=== PATIENT | male | born 1970 | race American Indian/Alaskan Native ===

== ENCOUNTER 2017-09-13 10:16 | Emergency (ER) | payer OTHER ==
[2017-09-13 10:23] VITALS: BMI 29.5
--- NOTE | 2017-09-13 10:48 | ED PDOC ---
Arrival/HPI - General Time Seen by Provider: 09/13/17 10:43 Historian: Patient - History of Present Illness Narrative History of Present Illness (Text): 09/13/17 10:45 Patient is a 46 year old male whose past medical history includes hypertension and left knee surgery, who presents to Emergency department complaining of right shoulder pain and hand numbness secondary to shoulder injury. Patient reports that prior to arrival he was at work and using a hose when he heard a pop from his right shoulder. He subsequently started experiencing shoulder pain , which he rates a 8/10 in severity, and tingling in his right 3rd, 4th, and 5th fingers. patient denies fevers, chills, headache, dizziness, chest pain, shortness of breath, dyspnea on exertion, cough, abdominal pain, nausea, vomiting, diarrhea, back pain, neck pain, or any other complaint. Time/Duration: Prior to Arrival Symptom Onset: Sudden Symptom Course: Unchanged Severity Level: 8 Context: Work Past Medical History - Provider Review Nursing Documentation Reviewed: Yes Family/Social History - Physician Review Nursing Documentation Reviewed: Yes Family/Social History: No Known Family HX Allergies/Home Meds Allergies/Adverse Reactions: Allergies No Known Allergies Allergy (Verified 09/13/17 10:23) Review of Systems - Physician Review All systems were reviewed & negative as marked: Yes - Review of Systems Constitutional: absent: Fevers, Night Sweats Respiratory: absent: SOB, Cough Cardiovascular: absent: Chest Pain, CANNON Gastrointestinal: absent: Abdominal Pain, Diarrhea, Nausea, Vomiting Musculoskeletal: Arthralgias (right shoulder pain). absent: Back Pain, Neck Pain Neurological: Other (right hand finger numbness/tingling). absent: Headache, Dizziness Physical Exam Vital Signs Temp Pulse Resp BP Pulse Ox 09/13/17 12:39 98.1 F 75 18 151/106 H 97 09/13/17 11:42 71 18 142/81 97 09/13/17 10:50 98.1 F 79 17 144/99 H 97 - Systems Exam Head: Present: Atraumatic, Normocephalic Pupils: Present: PERRL Extroacular Muscles: Present: EOMI Conjunctiva: Present: Normal Mouth: Present: Moist Mucous Membranes Neck: Present: Normal Range of Motion Respiratory/Chest: Present: Clear to Auscultation, Good Air Exchange. No: Respiratory Distress, Accessory Muscle Use Cardiovascular: Present: Regular Rate and Rhythm, Normal S1, S2. No: Murmurs Abdomen: No: Tenderness, Distention, Peritoneal Signs Back: Present: Normal Inspection Upper Extremity: Present: Normal Inspection, Neurovascularly Intact (Right hand neurovascularly intact), Other (No obvious dislocation or subluxation). No: Cyanosis, Edema, Normal ROM (Limited ROM of right shoulder due to pain) Lower Extremity: Present: Normal Inspection. No: Edema Neurological: Present: GCS=15, CN II-XII Intact, Speech Normal Skin: Present: Warm, Dry, Normal Color. No: Rashes Psychiatric: Present: Alert, Oriented x 3, Normal Insight, Normal Concentration Medical Decision Making ED Course and Treatment: 09/13/17 10:51 Impression: Patient is a 46 year old male who is complaining of right shoulder pain and finger tingling secondary to right shoulder injury. Differential Diagnosis included but are not limited to: Shoulder strain vs. Subluxation vs. Cervical radiculopathy vs. Dislocation. Plan: --Cervical spine CT without contrast --Right shoulder X-ray --Motrin -- Reassess and disposition Progress Notes: 09/13/17 11:51 Shoulder X-ray: Creator : Rubens Johnson MD IMPRESSION: Normal radiographs of the right shoulder. 09/13/17 11:[address]: Creator : Rubens Johnson MD IMPRESSION: No acute findings 09/13/17 12:00 Reevaluation: On reevaluation the patient feels better and is in no acute distress. I have discussed the results and plan with the patient, who expresses understanding. Patient given the opportunity to ask question, all questions were answered and there is agreement with the plan to discharge the patient home with a note excusing him from work for 7 days. Patient is stable for discharge. Patient was instructed to follow up with (Orthopedics) in 1-2 days or return if symptoms persist/worsen or new concerning symptoms arise. - RAD Interpretation Radiology Orders: 09/13/17 10:45 CERVICAL SPINE W/O CONTRAST [CT] Stat SHOULDER RIGHT [RAD] Stat Sonoscope Operator: Radiologist - Medication Orders Current Medication Orders: Discontinued Medications Ibuprofen (Motrin Tab) 800 mg PO STAT STA Stop: 09/13/17 10:46 Last Admin: 09/13/17 11:00 Dose: 800 mg - Scribe Statement The provider has reviewed the documentation as recorded by the Scribe Vinayak Billdeshawn Provider Scribe Attestation: All medical record entries made by the Scribe were at my direction and personally dictated by me. I have reviewed the chart and agree that the record accurately reflects my personal performance of the history, physical exam, medical decision making, and the department course for this patient. I have also personally directed, reviewed, and agree with the discharge instructions and disposition. Disposition/Present on Arrival - Present on Arrival Any Indicators Present on Arrival: No History of DVT/PE: No Urinary Catheter: No - Disposition Have Diagnosis and Disposition been Completed?: Yes Diagnosis: Shoulder strain Disposition: HOME/ ROUTINE Disposition Time: 12:03 Patient Plan: Discharge Condition: GOOD Discharge Instructions (ExitCare): Muscle Strain (DC) Additional Instructions: Mr Lucero- I believe this is just a shoulder sprain/strain and you may require some rehab/ physical therapy. Follow up with orthopedics- no lifting more then 10 pounds with that right arm. Best- Dr. Dimitry Herrera Prescriptions: Ibuprofen [Motrin Tab] 800 mg PO TID #90 tab Referrals: Yvon Shankar MD [Staff Provider] - Follow up with primary Forms: WORK NOTE, SCHOOL NOTE
[2017-09-13 10:53] VITALS: TEMP 98.1; O2SAT 97
--- NOTE | 2017-09-13 11:43 | RAD ---
PROCEDURE: Radiographs of the Right Shoulder HISTORY: Shoulder Pain COMPARISON: No prior. FINDINGS: BONES: Normal. No fracture. JOINTS: Normal. Glenohumeral and acromioclavicular joints preserved. No osteoarthritis. SOFT TISSUES: Normal. OTHER FINDINGS: None. IMPRESSION: Normal radiographs of the right shoulder.
[2017-09-13 11:45] VITALS: RESP 18
--- NOTE | 2017-09-13 11:51 | CT ---
PROCEDURE: CT Cervical Spine without contrast HISTORY: Radiculopathy COMPARISON: None available. TECHNIQUE: Axial computed tomography images were obtained of the cervical spine without the use of intravenous contrast. Coronal and sagittal reformatted images were created and reviewed. Radiation dose: Total exam DLP = 741 mGy-cm. This CT exam was performed using one or more of the following dose reduction techniques: Automated exposure control, adjustment of the mA and/or kV according to patient size, and/or use of iterative reconstruction technique. FINDINGS: VERTEBRAE: No fracture. Normal alignment. No destructive bony lesion. DISCS/SPINAL CANAL/NEURAL FORAMINA: No significant central canal or neural foraminal stenosis. Mild disc degeneration and mild foraminal stenosis at C5-6 PARASPINAL SOFT TISSUES: Unremarkable. OTHER FINDINGS: None. IMPRESSION: No acute findings
[2017-09-13 13:22] VITALS: BP 151/106; PULSE 75
== END 2017-09-13 12:39 | disposition home or self-care (01) ==
LOC: ED 10:16
DX: S46.911A Strain of unspecified muscle, fascia and tendon at shoulder and upper arm level, right arm, initial encounter (principal); X50.0XXA Overexertion from strenuous movement or load, initial encounter; Y92.89 Other specified places as the place of occurrence of the external cause; Y99.0 Civilian activity done for income or pay